=== PATIENT | female | born 1985 | race American Indian/Alaskan Native ===

== ENCOUNTER 2023-01-30 21:51 | Emergency (ER) | payer BC, MEDICAID, OTHER ==
[2023-01-30] MEDS ORDERED: Sodium Chloride 0.9% 10 ML Syringe FLUSH PRN (23:14)
[2023-01-30] MEDS ORDERED: Sodium Chloride 0.9% 1,000 ML IV ONE (23:19)
[2023-01-30 23:26] LABS: BASOPHILS PERCENT AUTO 0.2 % (0.0-1.0); EOSINOPHILS PERCENT AUTO 0.1 % (1.0-3.0); HEMOGLOBIN 13.8 g/dL (12.0-16.0); LYMPHOCYTES PERCENT AUTO 10.5 % (20.5-50.1); MEAN CORPUSCULAR HEMOGLOBIN 29.9 pg (27.0-34.0); MEAN CORPUSCULAR HGB CONC 34.5 g/dL (33.0-35.0); MEAN CORPUSCULAR VOLUME 86.8 fL (80-100); NEUTROPHILS PERCENT AUTO 81.2 % (42.2-75.2); PLATELET COUNT,PLT 290 10^3/uL (150-450); RED BLOOD CELL COUNT 4.61 10^6/uL (4.2-5.4); WHITE BLOOD CELL COUNT,WBC 19.3 10^3/uL (5.0-10.0)
[2023-01-30] MEDS ORDERED: Sulfamethoxazole/Trimethoprim 800-160 MG Tab PO ONE (23:33)
[2023-01-30] MEDS ORDERED: Lidocaine/Prilocaine 2.5-2.5% Crm 5 GM Tube TOP ONE (23:33)
[2023-01-30 23:53] LABS: A/G RATIO 0.9; ALBUMIN 3.4 g/dL (3.4-5.0); ANION GAP 14.5 mEq/L (7-13); BILIRUBIN TOTAL 0.6 mg/dL (0.2-1.0); BUN/CREATININE RATIO 14.1 (No establ ref range); CALCIUM 8.1 mg/dL (8.5-10.1); CREATININE 0.85 mg/dL (0.55-1.02); EST CRCL DRUG DOSING (CG) 85.66 mL/min; POTASSIUM,K 3.5 mmol/L (3.5-5.1); PROTEIN TOTAL,TP 7.1 g/dL (6.4-8.2)
[2023-01-31] MEDS ORDERED: HYDROmorphone 1 MG/ML Syringe IVPUSH ONE (00:14)
[2023-01-31] MEDS ORDERED: Iopamidol 612 MG/ML 100 ML Bottle IVPUSH ONE (00:59)
[2023-01-31] MEDS ORDERED: Sodium Chloride 0.9% 1,000 ML IV ONE (01:56)
[2023-01-31] MEDS ORDERED: Bacitracin Oint 1 GM U/D Packet TOP ONE (04:10)
[2023-01-31] MEDS ORDERED: Mupirocin Oint 22 GM Tube TOP ONE (04:11)
[2023-01-31 04:13] LABS: LACTIC ACID 0.6 mmol/L (0.4-2.0)
[2023-01-31 04:14] LABS: C-REACTIVE PROTEIN 12.2 mg/dL (0.0-0.9)
[2023-01-31] MEDS ORDERED: traMADol 50 MG Tab PO ONE (04:27)
== END 2023-01-31 04:43 | disposition home or self-care (01) ==
LOC: DL.ED 21:51
DX: L03.317 Cellulitis of buttock (principal)
CPT/HCPCS: 10060; 36415; 72193; 80053; 83605; 84145; 84703; 85025; 86140; 87040; 96361; 96365; 96375; 99283; A9270; J1170; J3370; J7030; J7040; Q9967; 99284; J3490